=== PATIENT | female | born 1965 | race Caucasian/White ===

== ENCOUNTER 2021-08-30 07:23 | Day surgery (SDC) | payer OTHER ==
[~2021-08-30] VITALS: Ht 165.1 cm; Wt 127.0 kg
[2021-08-30] MEDS ORDERED: MIDAZOLAM 5 MG/5 ML VIAL ONE (08:56)
[2021-08-30] MEDS ORDERED: diphenhydrAMINE 50 MG/ML VIAL ONE (08:56)
[2021-08-30] MEDS ORDERED: fentaNYL citrate 0.05 MG/ML VIAL ONE (08:56)
[2021-08-30] MEDS ORDERED: LIDOCAINE 2% 100 MG/5 ML UJET TP ONE (08:57)
== END 2021-08-30 10:21 | disposition home or self-care (01) ==
LOC: MDS 07:23 → MMU 07:23 → MDS 10:21
PROVIDERS: ATTEND Internal Medicine Gastroenterology
DX: Z12.11 Encounter for screening for malignant neoplasm of colon (principal); D12.2 Benign neoplasm of ascending colon; K59.00 Constipation, unspecified; I10 Essential (primary) hypertension; J45.909 Unspecified asthma, uncomplicated; Z90.710 Acquired absence of both cervix and uterus; Z80.0 Family history of malignant neoplasm of digestive organs; Z90.89 Acquired absence of other organs; Z79.899 Other long term (current) drug therapy; Z20.822 Contact with and (suspected) exposure to COVID-19
CPT/HCPCS: 45380; 45385; 87426; 88305; J1200; J2250; J3010